=== PATIENT | male | born 1970 | race Caucasian/White ===

== ENCOUNTER 2024-03-06 01:58 | Emergency (ER) | payer OTHER, SELFPAY ==
[2024-03-06 02:07] VITALS: BP 158/95; PULSE 96; RESP 20; TEMP 36.5; O2SAT 99; BMI 24.3
--- NOTE | 2024-03-06 02:51 | CT_ITS ---
PROCEDURE INFORMATION: Exam: CT Right Upper Extremity Without and With Contrast, Upper Arm Exam date and time: 03/06/2024 4:21 AM Age: 53 years old Clinical indication: Other: Abscess; Additional info: Abscess, sabscess, swelling, soft tissue infection TECHNIQUE: Imaging protocol: Computed tomography of the right upper extremity without and with contrast. Exam focused on the humerus. Radiation optimization: All CT scans at this facility use at least one of these dose optimization techniques: automated exposure control; mA and/or kV adjustment per patient size (includes targeted exams where dose is matched to clinical indication); or iterative reconstruction. Contrast material: ISOVUE; Contrast volume: 75 ml; Contrast route: IV; COMPARISON: CT FOREARM RT WO/W CON 03/06/2024 4:21 AM FINDINGS: Bones/joints: No acute fracture. Right total hip arthroplasty. There is significant lucency surrounding the femoral component concerning for represent loosening. Additionally the surrounding cortex is significantly thickened with small areas of cortical thinning/erosion and cannot exclude an infectious process. Soft tissues: 3.2 x 1.6 x 4.5 cm soft tissue fluid collection superficial to the distal brachioradialis with overlying cutaneous irregularity and cutaneous thickening concerning for a soft tissue abscess (series 6 image 181; series 1005, image 67). Lungs: 6 x 5 mm noncalcified right middle lobe perifissural nodule (series 6, image 77). IMPRESSION: 1. Fluid collection superficial to the distal brachioradialis likely representing a soft tissue abscess. No definite associated osseous infection. 2. Right total hip arthroplasty. There is significant lucency surrounding the femoral component concerning for loosening. Additionally the surrounding cortex is significantly thickened with small areas of cortical thinning/erosion and cannot exclude an infectious process. Please correlate with patient's symptoms and prior imaging.
--- NOTE | 2024-03-06 02:51 | CT_ITS ---
PROCEDURE INFORMATION: Exam: CT Right Upper Extremity Without and With Contrast, Forearm Exam date and time: 03/06/2024 4:21 AM Age: 53 years old Clinical indication: Other: Abcess; Additional info: Abscess, swelling, soft tissue infection TECHNIQUE: Imaging protocol: Computed tomography of the right upper extremity without and with contrast. Exam focused on the forearm. Radiation optimization: All CT scans at this facility use at least one of these dose optimization techniques: automated exposure control; mA and/or kV adjustment per patient size (includes targeted exams where dose is matched to clinical indication); or iterative reconstruction. Contrast material: ISOVUE; Contrast volume: 75 ml; Contrast route: IV; COMPARISON: CT HUMERUS RT WO/W CON 03/06/2024 4:21 AM FINDINGS: Bones/joints: No acute fracture. Right total hip arthroplasty. There is significant lucency surrounding the femoral component concerning for represent loosening. Additionally the surrounding cortex is significantly thickened with small areas of cortical thinning/erosion and cannot exclude an infectious process. Soft tissues: 3.2 x 1.6 x 4.5 cm soft tissue fluid collection superficial to the distal brachioradialis with overlying cutaneous irregularity and cutaneous thickening concerning for a soft tissue abscess (series 42, image 181; series 47, image 67). Lungs: 6 x 5 mm noncalcified right middle lobe perifissural nodule (series 42, image 74). IMPRESSION: 1. Fluid collection superficial to the distal brachioradialis likely representing a soft tissue abscess. No definite associated osseous infection. 2. Right total hip arthroplasty. There is significant lucency surrounding the femoral component concerning for loosening. Additionally the surrounding cortex is significantly thickened with small areas of cortical thinning/erosion and cannot exclude an infectious process. Please correlate with patient's symptoms and prior imaging.
--- NOTE | 2024-03-06 03:05 | ED_ITS ---
Discharge Plan Disposition Patient Disposition: Xfer Short-Term Hosp Referrals Follow up/Referrals: Provider,MD Ross [Primary Care Provider] - See instructions Clinical Impressions Clinical Impression: Abscess of right arm, Cellulitis of arm, right, Hip osteomyelitis, right Print Language Print Language: Welsh Discharge ED Provider: Jesus Mathur Adult HPI <Jesus Mathur MD - Last Filed: 03/06/24 06:29> General Chief complaint: Skin/Abscess/Foreign Body Stated complaint: abscess R arm Time Seen by Provider: 03/06/24 02:42 Mode of Arrival: Ambulatory Source of Information: Patient Limitations: No Limitations Description of Symptoms (Recalled from ER Triage Doc. by RN): pt reports he noticed the abscess on his right forearm 1 week ago, he attempted to cut it and drain it his self and took antibiotics he found at home. pt reports three days ago it got much worse with the redness and swelling spreading. History of Present Illness HPI narrative: 53-year-old male presents to the ER with abscess on his right forearm. He reports 1 week ago he felt a stinging pain and noticed a small red area. He states 2 to 3 days ago he attempted to cut it open himself but he thinks he messed up . He states he took some random antibiotics he found at home. Unclear what they were. Patient reports in the last few days it has significantly worsened. He now has redness from his wrist all the way up to the mid bicep. He has swelling, pain and redness spreading. Patient has not had documented fever but does report chills. He states he feels generally unwell. He states he has had 1 previous episode similar to this but denies IV drug use. He states the last time he thought it was a spider bite. Patient admits to marijuana and tobacco use. 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 ROS otherwise negative Related Data Allergies Allergy/AdvReac Type Severity Reaction Status Date / Time No Known Allergies Allergy Verified 03/06/24 02:11 PFSH <Jesus Mathur MD - Last Filed: 03/06/24 06:29> PFS Disclaimer: The information contained in this section may have been updated after the patient was seen, as this information can be updated by other users. Social History (Updated 03/06/24 @ 06:28 by Jesus Mathur MD) Smoking Status: Current every day smoker alcohol intake: never current occupational status: other Travel in the last 8 weeks: None Have you lived/traveled outside [place] in past 30 days?: No Contact w/someone who lives/traveled outside US past 30 days?: No Exposure to someone with infectious disease in past 14 days?: No Do you have a fever (greater than 100.4 F or 38 C)?: No Have you tested positive for COVID-19: No Exposed to someone with COVID-19 in past 14 days?: No Do you have a sore throat?: No Do you have a cough?: No Do you have any weakness?: No Do you have any diarrhea?: No Are you experiencing any unusual bleeding?: No Do you have any muscle aches/pain?: No Do you have any abdominal pain?: No Are you experiencing loss of taste or smell?: No <Jesus Mathur MD - Last Filed: 03/06/24 06:29> ROS Obtained: Yes Systems reviewed as appropriate & no additional complaints except as documented Per HPI Physical Exam <Jesus Mathur MD - Last Filed: 03/06/24 06:29> General General appearance: alert and in no apparent distress Head Head exam: atraumatic and normocephalic Eye Eye exam: Present PERRL and EOMI ENT ENT exam: Present mucous membranes moist Neck Neck exam: Present normal inspection and full ROM Chest Chest inspection: Present symmetric chest wall rise Respiratory Respiratory exam: Absent respiratory distress or stridor Cardiovascular Cardiovascular exam: Present normal rhythm and tachycardia (Heart rate 100 during exam) Abdominal Exam Abdominal exam: Present soft; Absent distention or tenderness Extremities Exam Extremities exam: Present full ROM and tenderness (Right forearm) Expanded Upper Extremity Exam Right: Arm exam: Present tenderness, swelling, laceration (Obvious wound overlying the radius just proximal to the midshaft area with significant surrounding erythema and induration, no crepitus, purulent drainage from the wound, some fluctuance present), erythema (Large area of erythema extending from the radial side of the left wrist proximally to approximately 50% of the way up the medial aspect of the left humerus) and other (Right hand is swollen but not erythematous, no induration, erythema that extends proximally into the humerus area is not indurated; neurovascularly intact throughout) Neurological Exam Neurological exam: Present alert and oriented X3; Absent motor sensory deficit Psychiatric Psychiatric exam: Present normal affect and normal mood Skin Skin exam: Present warm and dry Medical Decision Making <Jesus Matuhr MD - Last Filed: 03/06/24 06:29> Medical Records Screening: Per USPSTF and CDC recommendations, given the prevalence of disease in our region, it is our hospital?s policy to screen for HIV and viral Hepatitis for all patients aged 18 and over and those with ongoing risk factors. MR Comment: No previous records within our system Jacky Inquiry Pt receiving controlled substance: No Vital Signs: 03/06/24 02:07 03/06/24 08:43 Temperature 97.7 F Temperature Source Oral Pulse Rate 83 Pulse Rate [Right] 96 H Respiratory Rate 20 Blood Pressure 135/86 Blood Pressure [Right Arm] 158/95 H Blood Pressure Mean [Right Arm] 116 02 Sat by Pulse Oximetry 99 97 Oxygen Delivery Method Room Air Lab Data Lab Results 03/06/24 03:17: WBC 10.8, RBC 4.22 L, Hgb 11.2 L, Hct 35.6 L, MCV 84.4, MCH 26.5 L, MCHC 31.5 L, RDW 13.9, Plt Count 311, MPV 9.4, Neut % (Auto) 68.8, Lymph % (Auto) 17.1, Dent % (Auto) 10.3 H, Eos % (Auto) 3.2, Baso % (Auto) 0.4, Neut # (Auto) 7.4, Lymph # (Auto) 1.8, Dent # (Auto) 1.1 H, Eos # (Auto) 0.3, Baso # (Auto) 0.0, Sodium 134 L, Potassium 3.8, Chloride 101, Carbon Dioxide 29, Anion Gap 7.8, BUN 13, Creatinine 0.60 L, Estimated Creat Clear 155, Estimated GFR 141, Est GFR ( Amer) 171, Glucose 86, Lactate 0.8, Calcium 8.9, Total Bilirubin 0.4, AST 46, ALT 49, Alkaline Phosphatase 94, Total Protein 7.5, Albumin 3.8, Globulin 3.7 H, Albumin/Globulin Ratio 1.0 L 03/06/24 03:17 03/06/24 03:17 Orders (Tests/Meds): ED MEDICATIONS Discontinued Medications Generic Name Dose Route Start Last Admin Trade Name Freq PRN Reason Stop Dose Admin Vancomycin/PEG/NADA/Lysine/Water 1.5 gm in 300 mls @ 150 mls/hr 03/06/24 03:30 03/06/24 03:26 Vancomycin 1.5gm/300ml (Peg) Premix IV 03/06/24 05:29 150 mls/hr ONCE ONE Administration Iopamidol 75 ml 03/06/24 04:33 03/06/24 04:34 Iopamidol-370 (76%);100ml Bottle IV 03/06/24 04:34 75 ml ONCE ONE Administration Lidocaine HCl 3 ml 03/06/24 06:19 03/06/24 06:54 Lidocaine 1% 10ml Mdv IJ 03/06/24 06:20 3 ml ONCE ONE Administration Miscellaneous 1 each 03/06/24 03:00 03/06/24 03:35 Vancomycin Consult Request NOTAPPLIC 04/05/24 02:59 1 each CONSULT PHARMACY [facility] Administration Sodium Chloride 10 ml 03/06/24 04:33 03/06/24 04:33 Sodium Chloride 0.9% 10ml Syr (Rad Only) IV 03/06/24 04:34 10 ml ONCE ONE Administration ORDERS Category Date Time Status CT forearm RT wo/w con Stat Cat Scan 03/06/24 02:[address] hip RT wo con Stat Cat Scan 03/06/24 06:[address] humerus RT wo/w con Stat Cat Scan 03/06/24 02:51 Completed Consult [employer] [CONS] Routine Cons 03/06/24 06:15 Active POCUS Point of Care (ER Only) Stat Exams 03/06/24 05:35 Completed XR hip RT 2-3V w/pelvis Stat Exams 03/06/24 06:20 Completed CBC w/Auto Diff [Complete Blood Count Auto Diff] Stat Lab 03/06/24 03:17 Completed CMP [Comprehensive Metabolic Panel] Stat Lab 03/06/24 03:17 Completed Lactic Acid Stat Lab 03/06/24 03:17 Completed Blood Culture Stat Micro 03/06/24 03:25 Received Wound Culture and Gram Stain Stat Micro 03/06/24 03:35 Results Wound Culture and Gram Stain Stat Micro 03/06/24 06:10 Results Medical Decision Narrative: In summary, this 53-year-old male who reports no chronic medical condition but reports he has previously had abscess similar to the one he presents with today presents to the emergency department today with redness, pain, swelling of the right arm. On initial evaluation patient is tachycardic but otherwise hemodynamically stable, afebrile, he has large area of erythema, induration, swelling with central area of more significant swelling with purulent drainage and associated wound that patient reports he created himself. Differential diagnosis includes but is not limited to abscess, cellulitis, deep space infection, also considered an STI though I have lower suspicion for this given patient's 1 week progression of symptoms which I would expect to have been more rapid if it was an necrotizing infection, also considered bacteremia, MRSA, other drug-resistant infection, I considered neurovascular compromise but do not appreciate evidence of this on exam. Based on these concerns, I ordered serum labs, blood cultures, wound culture, CT imaging of the right upper extremity to assess the extent of infection and structures involved. Patient received IV vancomycin for treatment. Labs personally reviewed demonstrate WBC 10.8, borderline leukocytosis, hemoglobin 11.2, platelets normal, no actionable abnormalities on CMP. CT imaging of the right upper extremity personally interpreted demonstrates abscess of the right forearm that does not appear to involve underlying muscle and no subcutaneous air, no evidence of necrotizing infection, see radiology read for final interpretation. Radiology read is in agreement regarding the right upper extremity findings, radiology read also comments on possible osteomyelitis of the right hip. Patient had not mentioned anything regarding the right hip. Wound Gram stain demonstrates gram-positive cocci. Culture pending. On reassessment, patient's tachycardia has improved, when I asked him about the right hip, he states he had it replaced years ago and over the last month to month and a half he has had worse pain than normal. He states has been going on long enough he did not think to mention it during the initial portions of the encounter. He reports his hip replacement was done in 2016 at . I performed right upper extremity [id number] ultrasound to identify exact location of the abscess prior to incision and drainage. Patient was consented for incision and drainage, see procedure note for details of the ultrasound as well as incision and drainage. Copious amounts of yellow-green and gamino-black material was expressed from the abscess. The gamino-black material is concerning for IV drug use or other injection, it was not a foreign body. Patient still denies injection or known injury. Wound was covered with bacitracin after incision and drainage and packing. Dressed with gauze and Kerlix. During the incision and drainage I collected a fresh specimen directly from the open abscess for wound culture. I believe this patient requires admission given his significant area of induration with associated abscess as well as his tachycardia on arrival concerning for systemic symptoms. Additionally, now the patient is reporting he has had hip pain with the abnormal findings on CT scan. I briefly discussed this case with the hospitalist who recommended further imaging of the hip and possible orthopedic consult prior to admission. I ordered CT Noncon of the hip as well as x-rays of the right hip for further evaluation of the hardware and possible osteomyelitis. Hospitalist has not yet formally evaluated the patient at bedside. Patient handed off to Dr. Knox in stable condition pending this additional imaging workup and recommendations of the hospitalist. <Kelly Knox, DO - Last Filed: 03/06/24 08:52> Vital Signs: 03/06/24 02:07 03/06/24 08:43 Temperature 97.7 F Temperature Source Oral Pulse Rate 83 Pulse Rate [Right] 96 H Respiratory Rate 20 Blood Pressure 135/86 Blood Pressure [Right Arm] 158/95 H Blood Pressure Mean [Right Arm] 116 02 Sat by Pulse Oximetry 99 97 Oxygen Delivery Method Room Air Lab Data Lab Results 03/06/24 03:17: WBC 10.8, RBC 4.22 L, Hgb 11.2 L, Hct 35.6 L, MCV 84.4, MCH 26.5 L, MCHC 31.5 L, RDW 13.9, Plt Count 311, MPV 9.4, Neut % (Auto) 68.8, Lymph % (Auto) 17.1, Dent % (Auto) 10.3 H, Eos % (Auto) 3.2, Baso % (Auto) 0.4, Neut # (Auto) 7.4, Lymph # (Auto) 1.8, Dent # (Auto) 1.1 H, Eos # (Auto) 0.3, Baso # (Auto) 0.0, Sodium 134 L, Potassium 3.8, Chloride 101, Carbon Dioxide 29, Anion Gap 7.8, BUN 13, Creatinine 0.60 L, Estimated Creat Clear 155, Estimated GFR 141, Est GFR ( Amer) 171, Glucose 86, Lactate 0.8, Calcium 8.9, Total Bilirubin 0.4, AST 46, ALT 49, Alkaline Phosphatase 94, Total Protein 7.5, Albumin 3.8, Globulin 3.7 H, Albumin/Globulin Ratio 1.0 L Orders (Tests/Meds): ED MEDICATIONS Discontinued Medications Generic Name Dose Route Start Last Admin Trade Name Abdirashidq PRN Reason Stop Dose Admin Vancomycin/PEG/NADA/Lysine/Water 1.5 gm in 300 mls @ 150 mls/hr 03/06/24 03:30 03/06/24 03:26 Vancomycin 1.5gm/300ml (Peg) Premix IV 03/06/24 05:29 150 mls/hr ONCE ONE Administration Iopamidol 75 ml 03/06/24 04:33 03/06/24 04:34 Iopamidol-370 (76%);100ml Bottle IV 03/06/24 04:34 75 ml ONCE ONE Administration Lidocaine HCl 3 ml 03/06/24 06:19 03/06/24 06:54 Lidocaine 1% 10ml Mdv IJ 03/06/24 06:20 3 ml ONCE ONE Administration Miscellaneous 1 each 03/06/24 03:00 03/06/24 03:35 Vancomycin Consult Request NOTAPPLIC 04/05/24 02:59 1 each CONSULT PHARMACY [facility] Administration Sodium Chloride 10 ml 03/06/24 04:33 03/06/24 04:33 Sodium Chloride 0.9% 10ml Syr (Rad Only) IV 03/06/24 04:34 10 ml ONCE ONE Administration ORDERS Category Date Time Status CT forearm RT wo/w con Stat Cat Scan 03/06/24 02:[address] hip RT wo con Stat Cat Scan 03/06/24 06:[address] humerus RT wo/w con Stat Cat Scan 03/06/24 02:51 Completed Consult [employer] [CONS] Routine Cons 03/06/24 06:15 Active POCUS Point of Care (ER Only) Stat Exams 03/06/24 05:35 Completed XR hip RT 2-3V w/pelvis Stat Exams 03/06/24 06:20 Completed CBC w/Auto Diff [Complete Blood Count Auto Diff] Stat Lab 03/06/24 03:17 Completed CMP [Comprehensive Metabolic Panel] Stat Lab 03/06/24 03:17 Completed Lactic Acid Stat Lab 03/06/24 03:17 Completed Blood Culture Stat Micro 03/06/24 03:25 Received Wound Culture and Gram Stain Stat Micro 03/06/24 03:35 Results Wound Culture and Gram Stain Stat Micro 03/06/24 06:10 Results Medical Decision Narrative: In summary, this 53-year-old male who reports no chronic medical condition but reports he has previously had abscess similar to the one he presents with today presents to the emergency department today with redness, pain, swelling of the right arm. On initial evaluation patient is tachycardic but otherwise hemodynamically stable, afebrile, he has large area of erythema, induration, swelling with central area of more significant swelling with purulent drainage and associated wound that patient reports he created himself. Differential diagnosis includes but is not limited to abscess, cellulitis, deep space infection, also considered an STI though I have lower suspicion for this given patient's 1 week progression of symptoms which I would expect to have been more rapid if it was an necrotizing infection, also considered bacteremia, MRSA, other drug-resistant infection, I considered neurovascular compromise but do not appreciate evidence of this on exam. Based on these concerns, I ordered serum labs, blood cultures, wound culture, CT imaging of the right upper extremity to assess the extent of infection and structures involved. Patient received IV vancomycin for treatment. Labs personally reviewed demonstrate WBC 10.8, borderline leukocytosis, hemoglobin 11.2, platelets normal, no actionable abnormalities on CMP. CT imaging of the right upper extremity personally interpreted demonstrates abscess of the right forearm that does not appear to involve underlying muscle and no subcutaneous air, no evidence of necrotizing infection, see radiology read for final interpretation. Radiology read is in agreement regarding the right upper extremity findings, radiology read also comments on possible osteomyelitis of the right hip. Patient had not mentioned anything regarding the right hip. Wound Gram stain demonstrates gram-positive cocci. Culture pending. On reassessment, patient's tachycardia has improved, when I asked him about the right hip, he states he had it replaced years ago and over the last month to month and a half he has had worse pain than normal. He states has been going on long enough he did not think to mention it during the initial portions of the encounter. He reports his hip replacement was done in 2016 at . I performed right upper extremity [id number] ultrasound to identify exact location of the abscess prior to incision and drainage. Patient was consented for incision and drainage, see procedure note for details of the ultrasound as well as incision and drainage. Copious amounts of yellow-green and gamino-black material was expressed from the abscess. The gamino-black material is concerning for IV drug use or other injection, it was not a foreign body. Patient still denies injection or known injury. Wound was covered with bacitracin after incision and drainage and packing. Dressed with gauze and Kerlix. During the incision and drainage I collected a fresh specimen directly from the open abscess for wound culture. I believe this patient requires admission given his significant area of induration with associated abscess as well as his tachycardia on arrival concerning for systemic symptoms. Additionally, now the patient is reporting he has had hip pain with the abnormal findings on CT scan. I briefly discussed this case with the hospitalist who recommended further imaging of the hip and possible orthopedic consult prior to admission. I ordered CT Noncon of the hip as well as x-rays of the right hip for further evaluation of the hardware and possible osteomyelitis. Hospitalist has not yet formally evaluated the patient at bedside. Patient handed off to Dr. Knox in stable condition pending this additional imaging workup and recommendations of the hospitalist. Abilio DO: I assumed care of patient at 0700 and at that time, he is lying in bed in no acute distress. Vitals reassuring on cardiac telemetry. Labs significant for mild anemia, mild hyponatremia. CT scans concerning for R arm abscess with cellulitis s/p I&D by previous provider. Cultures positive for G + cocci, he received IV vancomycin. CT scan of the hip is concerning for chronic right osteomyelitis. I had an interactive discussion with Dr. Alegria with orthopedics here who advised the patient would benefit from transfer to higher level of care for evaluation and management in case he is bacteremic and is seeding of the hip. I had an interactive discussion with Dr. Dumont at who advised patient has extensive history he did not disclose to us, including IVDU, R hip replacement, R periprosthetic femur fx, antibiotic disc to hip due to recurrent osteo with removal and lost to follow up. 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 He has canceled multiple recent appointments with orthopedics. Dr. George with [facility] is familiar with patient and advised they could consult for the hip. Dr. Dumont accepted the patient to [facility] for evaluation and management. I recommended to the patient that EMS transport is the safest means to get him there, however he refused. He states that his sister lives right next to the hospital and is able to take him there. I advise that he is supposed to go to [facility], and he expressed understanding and agreement. We discussed the risk of not going directly there, including worsening of condition and even . He understands and states that he is going to go there. He left in stable condition to go POV to [facility]. Procedures <Jesus Mathur MD - Last Filed: 03/06/24 06:29> Risk/Benefits of Procedure(s) Were Explained: Yes (Verbal and written consent provided by patient) Abscess I/D Site: upper extremity Side (if applicable): right Sedation/analgesia: none Local Anesthetic: lidocaine 1% Amount of anesthesia used (mL): 3 Technique: incised with #11 blade Amount of fluid expressed (mL): 8 (Copious yellow-green and gamino purulent material with occasional black flecks expressed, at least 5 to 10 mL of fluid expressed) Irrigation: Yes Packing used?: iodoform (Approximately 2 inches of half-inch iodoform packing gauze used to pack wound with tail left out for easy removal) Complications: other (No complications. Bacitracin applied and wound dressed with gauze, Kerlix. Neurovascularly intact after procedure.) Miscellaneous Procedure Procedure Performed: Soft tissue ultrasound Indication: Soft tissue redness, swelling, pain Identified structures: Soft tissues of the right forearm Location: Right forearm Findings: Abscess greater than 3 cm with surrounding cellulitis, no foreign body or subcutaneous air Impression: Abscess Images were saved to the permanent archive. The study was technically adequate. Soft tissue CPT codes Upper extremity: 91870-98 This study was performed by me, and I personally interpreted all images/videos. Based on my clinical judgment, these images were adequate and did not necessitate further imaging. Ultrasound-guided IV Indications: Need for peripheral access, unable to obtain other access Location: Left upper extremity The risks and benefits were explained to the patient prior to procedure, he provided verbal consent Procedure details: 20-gauge IV placed in proximal left upper extremity under ultrasound guidance. Success on first attempt, draws and flushes, secured with Tegaderm. No procedural complications. Neurovascularly intact after procedure. Patient tolerated procedure well Critical Care <Jesus Mathur MD - Last Filed: 03/06/24 06:29> Critical Care Time Critical Care Time: No <Kelly Knox DO - Last Filed: 03/06/24 08:52> Critical Care Time Critical Care Time: No
[2024-03-06] MEDS: VANCOMYCIN/WATER FOR INJ (PEG) 1.5 GM/300 ML PIGGYBACK IV (03:26)
[2024-03-06 03:27] LABS: Basophils % 0.4 % (0.1-2.0); Eosinophils # 0.3 K/mm3 (0.0-0.4); Eosinophils % 3.2 % (0.1-12.0); Hematocrit 35.6 % (42.0-52.0); Hemoglobin 11.2 g/dL (14.1-18.0); Lymphocytes # 1.8 K/mm3 (0.7-4.5); Lymphocytes % 17.1 % (10-50); Mean Corpuscular HGB Conc 31.5 g/dL (31.8-35.4); Mean Corpuscular Hemoglobin 26.5 pg (27.0-31.2); Mean Corpuscular Volume 84.4 fl (80-94); Mean Platelet Volume 9.4 fl (7.4-10.4); Monocytes # 1.1 K/mm3 (0.1-1.0); Monocytes % 10.3 % (1.7-9.3); Neutrophils # 7.4 K/mm3 (1.8-7.8); Neutrophils % 68.8 % (37.0-80.0); Platelet Count 311 K/mm3 (142-424); Red Blood Count 4.22 M/mm3 (4.60-6.20); Red Cell Distribution Width 13.9 % (11.5-17.5); White Blood Count 10.8 K/mm3 (4.8-10.8)
[2024-03-06] MEDS: VANCOMYCIN CONSULT REQUEST 1 EACH NOTAPPLIC (03:35)
[2024-03-06 03:45] LABS: Albumin Level 3.8 g/dl (3.5-5.0); Chloride 101 mmol/L (98-107); Potassium 3.8 mmoL/L (3.5-5.1); Sodium 134 mmol/L (136-145)
[2024-03-06 03:47] LABS: Blood Urea Nitrogen 13 mg/dl (9-20); Creatinine Clearance Estimated 155 mL/min (50-200); Estimated Glomerular Filt Rate 141 ml/min (>60); GFR (African American) 171 ML/MIN (>60)
[2024-03-06 03:48] LABS: Alanine Aminotransferase 49 U/L (12-78); Alkaline Phosphatase 94 U/L (38-126); Anion Gap 7.8 mEq/L (5-15); Aspartate Amino Transferase 46 U/L (17-59); Bilirubin,Total 0.4 mg/dl (0.2-1.3); Calcium 8.9 mg/dl (8.4-10.2); Carbon Dioxide 29 mmol/L (22.0-30.0); Globulin 3.7 g/dL (1.3-3.2); Glucose 86 mg/dl (74-100); Lactic Acid 0.8 mmol/L (0.7-2.1); Total Protein,Serum 7.5 g/dl (6.3-8.2)
[2024-03-06] MEDS: SODIUM CHLORIDE 0.9% 10ML SYR (RAD ONLY) 10 ML IV (04:33)
[2024-03-06] MEDS: IOPAMIDOL-370 (76%);100ML BOTTLE 75 ML IV (04:34)
--- NOTE | 2024-03-06 06:20 | XR_ITS ---
PROCEDURE INFORMATION: Exam: XR Right Hip Exam date and time: 03/06/2024 6:20 AM Age: 53 years old Clinical indication: Hip pain; Right hip; Prior surgery; Surgery date: 6+ months; Surgery type: Hip rep around 2017; Additional info: Pain w/ hardward, possible osteo TECHNIQUE: Imaging protocol: Radiologic exam of the right hip. Views: 2 or 3 views hip with pelvis when performed. COMPARISON: No relevant prior studies available. FINDINGS: Bones/joints: Previous right hip arthroplasty with metallic hardware in place. 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 Significant lucency surrounding the right hip prosthesis with endosteal scalloping, cortical thickening, chronic periostitis, periarticular debris and heterotopic bone. Moderate to severe left hip arthrosis. Soft tissues: No significant soft tissue abnormalities. IMPRESSION: 1. 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 2. Significant lucency surrounding the right hip prosthesis and additional findings as described consistent with chronic osteomyelitis.
--- NOTE | 2024-03-06 06:20 | CT_ITS ---
PROCEDURE INFORMATION: Exam: CT Right Lower Extremity, Hip Exam date and time: 03/06/2024 6:37 AM Age: 53 years old Clinical indication: Pain; Hip; Right; Prior surgery; Surgery date: 6+ months; Additional info: Possible osteo incidental on earlier CT TECHNIQUE: Imaging protocol: CT of the right lower extremity without contrast was performed. Exam focused on the hip. Radiation optimization: All CT scans at this facility use at least one of these dose optimization techniques: automated exposure control; mA and/or kV adjustment per patient size (includes targeted exams where dose is matched to clinical indication); or iterative reconstruction. COMPARISON: CR Hip R 03/06/2024 6:20 AM FINDINGS: Bones/joints: Previous right hip arthroplasty with metallic hardware in place. 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 Significant lucency surrounding the right hip prosthesis with endosteal scalloping, cortical thickening as well as areas of cortical thinning and cortical defects, chronic periostitis, periarticular debris and heterotopic bone. No definite acute fracture. No hip dislocation. Soft tissues: Lateral right hip soft tissue scarring. Proximal right thigh soft tissue swelling. Lymph nodes: Right inguinal and pelvic lymphadenopathy. IMPRESSION: 1. Previous right hip arthroplasty with associated protrusio acetabulum and medial right acetabular cortical defect. 2. Significant lucency surrounding the right hip prosthesis and additional findings as described suggestive of chronic osteomyelitis. 3. Right inguinal and pelvic lymphadenopathy.
[2024-03-06] MEDS: LIDOCAINE 1% 10ML MDV 3 ML IJ (06:54)
--- NOTE | 2024-03-06 08:07 | PC.NURSE ---
Called for transfer of patient.
--- NOTE | 2024-03-06 08:08 | PC.NURSE ---
Asked for images to be powershared to [facility], and to make disk
[2024-03-06 08:43] VITALS: BP 135/86; PULSE 83; O2SAT 97
[2024-03-06 09:07] VITALS: BP 135/86; PULSE 83; RESP 16; TEMP 36.5
--- NOTE | 2024-03-07 13:37 | PEERSUPPORT ---
Peer Support Note Patient Information Patient Information: DOS: 03/07/2024 ? Ps attempted to make contact with patient. ? No answer Left voicemail to return phone call.
--- NOTE | 2024-03-12 10:03 | PC.NURSE ---
Discussed would culture with she attempted to call pt x3, voicemail left. [facility] [place] as this is where the pt is from and no pharmacy was in chart. Pt was transferred to [facility] by po but did not arrive to when dc from [facility]
--- NOTE | 2024-03-16 09:09 | PC.NURSE ---
ATTEMPTED TO REACH PT FOR FOLLOW-UP, UNABLE TO LEAVE MESSAGE.
== END 2024-03-06 09:09 | disposition short-term general hospital (02) ==
PROVIDERS: Emergency Provider Emergency Medicine
DX: M86.9 Osteomyelitis, unspecified (principal); L03.113 Cellulitis of right upper limb; L02.413 Cutaneous abscess of right upper limb; F19.90 Other psychoactive substance use, unspecified, uncomplicated
CPT/HCPCS: 10060; 73202; 73502; 73700; 80053; 83605; 85025; 87040; 87070; 87077; 87186; 87205; 96365; 96366; 99285; J3372; Q9967